=== PATIENT | male | born 1995 | race Caucasian/White ===

== ENCOUNTER 2020-03-13 17:11 | Emergency (ER) | payer MEDICAID, SELFPAY ==
[2020-02-06 14:37] VITALS: BMI 33.7
[2020-03-13 17:13] VITALS: BP 109/71; PULSE 95; RESP 18; TEMP 36.7; O2SAT 97; BMI 32.8
--- NOTE | 2020-03-13 17:26 | ED.DCSUM_ITS ---
History of Present Illness Chief Complaint: Other, Pain/Inj Narrative: Patient is a 24-year-old male who presents to the emergency department for rectal pain. This started yesterday. It is worse whenever he is having bowel movements and sitting on it. He does have a history of hemorrhoids in the past. He has been using Preparation H which has not been giving him significant relief. He states he has been straining to have bowel movements. Denies any blood in the stool. No melena. No abdominal pain. Denies any fevers or chills. No previous surgeries on the abdomen/pelvis. Past Medical History - Allergies and Home Meds Allergies/Adverse Reactions: Allergies No Known Allergies Allergy (Unverified 03/13/20 17:15) Primary Care Physician: Noman Urbina MD [Primary Care Provider] - 3-5 Days Smoking Status: Current every day smoker Review of Systems All systems negative except as indicated General: Denies: Chills, Fever, Sweats Eyes: Denies: Visual changes - bilaterally, Diplopia ENT: Denies: Rhinorrhea, Sore throat Cardiovascular: Denies: Chest pain, Palpitations Respiratory: Denies: Dyspnea, Cough, Dyspnea on exertion Gastrointestinal: Reports: - - Positive for rectal pain. Denies: Abdominal pain, Nausea, Vomiting, Diarrhea, Melena, Hematochezia Genitourinary: Denies: Dysuria, Hematuria, Frequency Musculoskeletal: Denies: Back pain, Extremity Pain Skin: Denies: Rash, Wounds Neurological: Denies: Headache, Weakness, Numbness Physical Exam Vital Signs/Narrative: Vital Signs Temp Pulse Resp BP Pulse Ox 03/13/20 17:13 98.0 F 95 18 109/71 97 Inital Vital Signs reviewed: Yes General: Well nourished, Well developed, No Acute Distress Head: Normocephalic, Atraumatic Eyes: Perrl, EOMI ENT: Moist mucous membranes, No rhinorrhea Neck: Supple, Nontender Cardiovascular: Regular rate, Regular rhythm, No murmurs Respiratory: No distress, CTA bilaterally, Chest nontender Abdomen: Soft, Nontender, Nondistended, Normal bowel sounds Rectal: - - No obvious external hemorrhoids. No blood present. No melena. No obvious fissures. No appreciable abscess. Back: Nontender, Normal Inspection Extremities: Nontender, No edema Skin: Normal color, No rash Neurological: Alert, Oriented x3, Cranial nerves II-XII grossly intact, Normal Strength, Normal Sensation Psychological: Normal affect, Normal Mood Diagnostic/Tx/Re-eval - Medical Decision Making Patient presents to the ED for rectal pain. Worse with bowel movements and sitting on it. Physical exam is benign. Vital signs within normal limits. Will place him on Colace for the straining. Suspect a small fissure. Recommend sitz bath. Can continue the Preparation H. Patient advised on higher fiber diet. Warning signs and symptoms for which to return to the ED including worsening pain, any bleeding or developing any abscess are reviewed. He otherwise is to follow-up with his PCP. He understands and is agreeable this plan. Patient discharged home in stable condition. ED Disposition - Plan for ED Patient: Disposition: Home or Assisted Living Diagnosis: Rectal pain Instructions: ED Fissure Anal Ch Prescriptions: Docusate Sodium [Colace] 100 mg PO BID 15 Days #30 cap Transmission Status: Received by [facility] [place] - [id number] Referrals: Noman Urbina MD [Primary Care Provider] - 3-5 Days
== END 2020-03-13 18:05 | disposition home or self-care (01) ==
LOC: ED 17:30
PROVIDERS: Emergency Provider Emergency Medicine; PCP Internal Medicine
DX: K62.89 Other specified diseases of anus and rectum (principal); F17.200 Nicotine dependence, unspecified, uncomplicated
CPT/HCPCS: 99282

== ENCOUNTER 2020-09-06 14:47 | Inpatient (IN) | payer MEDICAID, SELFPAY ==
[2020-09-06 14:48] VITALS: BP 121/86; PULSE 123; RESP 15; TEMP 36.4; O2SAT 97; BMI 32.3
--- NOTE | 2020-09-06 15:24 | ED.VISSUMM ---
- ER Visit Summary Date of Service: 09/06/20 Chief Complaint: Requesting inpatient detox for alcohol abuse History of Present Illness: The patient is a 25 M 3 of alcoholism and methamphetamine abuse. Patient denies any IV drug abuse. Last detox was approximately 8 months ago in [facility]. He states he drinks about 1/5 of Law Rober a day with 12 pack of beer. He denies any vomiting, diarrhea or melena. He denies any fevers. Physical Examination: Well-appearing young male. Vital signs stable and afebrile. He does not look septic or toxic. He is in no acute distress. H EENT exam unremarkable. Moist extremities. No signs of trauma to his face or scalp. Neck nontender no lymphadenopathy. Lungs clear to auscultation bilaterally. Heart tachycardic rate about 110 no murmur. Chest wall nontender. Abdomen soft nontender. Normal bowel sounds no peritoneal signs. Patient moving all 4 extremities. Neurovascular intact. Nontender no deformities. Back nontender. Neurologically is awake alert with no focal motor deficits. Test Results: [] Emergency Department Course and Treatment: Patient requesting inpatient detox for alcohol abuse. Also has a history of methamphetamine abuse. Treatment Plan: Hospitalist on page for admission Disposition: Admission. Impression: Requesting inpatient detox for alcohol abuse Also a history of methamphetamine abuse patient also gives me This note was generated with [employer] dictation software. It may contain incorrect words, spelling, and punctuation that were not noted in review of the chart prior to signing ED Disposition - Plan for ED Patient: Referrals: Care Physician,No Primary [Primary Care Provider] -
[2020-09-06 15:33] LABS: Absolute Lymphocyte Count 2.25 X10^3/uL (0.83-4.51); Absolute Neutrophil Count 2.8 X10^3/uL (2.0-7.7); Basophil# 0.06 X10^3/uL; Basophil% 1.1 % (0-1); Eosinophil# 0.13 X10^3/uL; Eosinophils% 2.3 % (0-5); Hematocrit 48.6 % (40-54); Hemoglobin 16.2 g/dL (13.0-16.5); Lymphocyte # 2.25 X10^3/ul (4.0); Lymphocyte % 39.9 % (19-41); Mean Corp Hgb Conc 33.3 g/dL (32-36); Mean Corpuscular Hgb 28.5 pg (27.0-32.0); Mean Corpuscular Volume 85.6 fL (80-94); Mean Platelet Vol. 9.1 fl (6.2-12.0); Monocyte# 0.39 X10^3/uL; Monocyte% 6.9 % (0-10); NRBC Flagged by Analyzer 0 % (0-5); Neutrophil % 49.6 % (47-70); Platelet Count 327 K/mm3 (150-450); RBC Distribution Width CV 13.3 % (11.6-14.6); RBC Distribution Width SD 41.6 fl (35.1-43.9); Red Blood Count 5.68 M/mm3 (4.6-6.2); White Blood Count 5.6 K/mm3 (4.4-11.0)
--- NOTE | 2020-09-06 15:41 | PCM.HP.STD ---
Problem List (1) Acute alcohol withdrawal Status: Acute (2) Alcohol abuse Status: Chronic (3) Bipolar 1 disorder Status: Chronic (4) Anxiety Status: Chronic (5) Depression Status: Chronic History of Present Illness Date of Admission: 09/06/20 Chief Complaint: Presented to the ED requesting admission for acute alcohol withdrawal. The patient is a 25 year old M with past medical history as mentioned above presented to the emergency room requesting admission for acute alcohol withdrawal. During my encounter, patient was very careless and playing games with his iPhone. I asked him a question about where he lives and he states that he does not have a place to live now but he was at a hotel recently. He states that he underwent detox program 8 months ago in [facility] but he relapsed drinking again around 1 week ago. He drinks 1/5 of Law and 12 beers a day. At this time, he denied any withdrawal symptoms. He admitted using amphetamines as well. He denied use of IV drugs. In the emergency department, he was tachycardic, other vital signs were stable. Routine blood work was remarkable for creatinine of 1.32, otherwise normal. LFT was unremarkable. Urine drug screen was positive for amphetamines and methamphetamines. Blood alcohol level was less than 3. He is being admitted for acute alcohol withdrawal for medical stabilization. Past Medical History Past Medical History (Chronic Problems): Chronic Problems (Last Updated 09/06/20 @ 15:[address] Holly Vega MD) Alcohol abuse (Chronic) Bipolar 1 disorder (Chronic) Anxiety (Chronic) Depression (Chronic) Medical History: Medical History (Last Updated 09/06/20 @ 15:[address] Holly Vega MD) Bipolar 1 disorder (Chronic) F31.9 Anxiety (Chronic) F41.9 Depression (Chronic) F32.9 Alcohol abuse F10.10 Drug abuse F19.10 history of fracture jaw Allergies No Known Allergies Allergy (Unverified 03/13/20 17:15) Home Medications: Ambulatory Orders Medication Instructions Recorded NK 09/06/20 Surgical History: no surgical history Psychiatric History: Anxiety, Depression Lives: Homeless Smoking Status: Current every day smoker Tobacco Use: Cigarettes Alcohol: Heavy Drugs: - - Amphetamines. - *Family History Maternal Family History: Family History (Last Updated 02/06/20 @ 14:44 by Morena Stoner) Aunt Cancer Other Depression Paternal Family History: Family History (Last Updated 02/06/20 @ 14:44 by Morena Stoner) Aunt Cancer Other Depression History Items: No pertinent history Review of Systems Constitutional: Denies: Anorexia, Chills, Fever, Weakness Eyes: Denies: Blurred vision, Double vision, Drainage, Redness HEENT: Denies: Difficulty Hearing, Dysphasia, Ear Pain, Eye Pain, Nasal Congestion, Sore Throat Cardiovascular: Denies: Chest Pain, Chest Pressure, Chest Tightness, Edema, Heaviness, Palpitations, Syncope Respiratory: Denies: Cough, Pleuritic Pain, Shortness of Breath, Sputum production, Wheezing Gastrointestinal: Denies: Abdominal Pain, Constipation, Diarrhea, Nausea, Vomiting Genitourinary: Denies: Dysuria, Frequency, Hematuria Musculoskeletal: Denies: Arm Pain, Back Pain, Foot Pain Skin: Denies: Dryness, Rash Neurological: Denies: Balance problems, Blurred vision, Double vision, Change in Speech, Slurred speech, Headaches, Incoordination Psychiatric: Reports: Anxiety, Depression. Denies: Suicidal Ideations Endocrine: Denies: Change in Body Habitus, Polydipsia, Polyuria VTE Information - Inpt Only VTE Present on Admission: No VTE Mechan Device Prophylaxis: None VTE Pharm Prophylaxis ordered?: No Patient Problems: Active and Suspected Problems (Last Updated 09/06/20 @ 15:[address] Holly Vega MD) Acute alcohol withdrawal (Acute) - Physical Exam Vitals/I&O's: Vital Signs Temp Pulse Resp BP Pulse Ox 97.5 F L 123 H 15 121/86 H 97 09/06/20 14:48 09/06/20 14:48 09/06/20 14:48 09/06/20 14:48 09/06/20 14:48 Oxygen Delivery Method Room Air Weight: 206 lb 2.115 oz Body Mass Index (BMI) 32.3 General: Alert, Oriented x3, Cooperative, No apparent distress HEENT: Atraumatic, PERRLA, EOMI, Normocephalic Oral: Moist Mucosa, No Gingival or Mucosal Lesions/ Ulcerations Neck: Supple, No JVD, Negative Carotid Bruits, Trachea Midline, Thyroid Normal Size and Texture Lungs: Clear to auscultation, Normal air movement, No rhonchi, No wheeze, No rales Cardiovascular: Regular rate, Regular Rhythm, Normal S1, Normal S2, PMI Normal Abdomen: Bowel Sounds Present, Soft, Non Tender, Non-Distended, No Hepato-splenomegaly Extremities: No clubbing, No cyanosis, No edema Skin: No rashes, No breakdown Lymphatic: No Cervical, Supraclavicular, or Inguinal Adenopathy Neurological: Cranial nerves II-XII grossly intact, Motor Exam 5/5 strength throughout Psych/Mental Status: Normal Affect, Appropriate, Alert and oriented to time, place, person, mood and affect Laboratory Results 09/06/20 15:15: WBC 5.6, RBC 5.68, Hgb 16.2, Hct 48.6, MCV 85.6, MCH 28.5, MCHC 33.3, RDW Std Deviation 41.6, RDW Coeff of Jai 13.3, Plt Count 327, MPV 9.1, Immature Gran % (Auto) 0.200, Neut % (Auto) 49.6, Lymph % (Auto) 39.9, Mills % (Auto) 6.9, Eos % (Auto) 2.3, Baso % (Auto) 1.1 H, Absolute Neuts (auto) 2.8, Absolute Lymphs (auto) 2.25, Nucleated RBC % 0 09/06/20 15:15: Sodium Pending, Potassium Pending, Chloride Pending, Carbon Dioxide Pending, Anion Gap Pending, BUN Pending, Creatinine Pending, Est GFR (MDRD) Af Amer Pending, Est GFR (MDRD) Non-Af Pending, BUN/Creatinine Ratio Pending, Glucose Pending, Calcium Pending, Total Bilirubin Pending, AST Pending, ALT Pending, Alkaline Phosphatase Pending, Total Protein Pending, Albumin Pending 09/06/20 15:15: Ethyl Alcohol Pending 09/06/20 15:27: Urine Opiates Screen Pending, Urine Methadone Screen Pending, Ur Barbiturates Screen Pending, Ur Phencyclidine Scrn Pending, Ur Amphetamines Screen Pending, U Methamphetamin-MDMA Pending, U Benzodiazepines Scrn Pending, Urine Cocaine Screen Pending, U Cannabinoids Screen Pending, Ur Drug Screen Comment Assessment/Plan All Active Problems (Last Updated 09/06/20 @ 15:[address] Holly Vega MD) Acute alcohol withdrawal (Acute) This is a 25 years old male patient presented to the emergency room requesting admission for acute alcohol withdrawal for medical stabilization. #1 acute alcohol withdrawal: Blood alcohol level was less than 3. Urine drug screen was positive for amphetamines and methamphetamines. Apart from mild tachycardia, other vital signs are stable. Plan: Admit to [facility] floor, initiate alcohol withdrawal protocol with tapering phenobarbital, thiamine and folate supplements, as needed Tylenol, Bentyl, Neurontin, Vistaril, Imodium, Zofran and trazodone, consult 180 program. #2 dehydration: As indicated by slightly better creatinine and tachycardia. Plan for IV fluids, repeat BMP tomorrow morning. #3 amphetamine use: Urine drug screen was positive for amphetamines and methamphetamines. #4 anxiety/depression/bipolar disorder: Currently, patient is not taking her medications. He denied suicidal intentions or ideations. #5 DVT prophylaxis: Low risk patient, no prophylaxis indicated. Ambulate. This note was generated with [employer] dictation software. It may contain incorrect words, spelling, and punctuation that were not noted in checking the note before signing. Inpatient E&M: 07296 Init Hosp L2
[2020-09-06 15:42] VITALS: BP 121/86; PULSE 123; RESP 15; TEMP 36.4; O2SAT 97
[2020-09-06 15:53] LABS: ALB/GLOB Ratio 1.2 RATIO (0.9-2.4); AST(SGOT) 16 U/L (15-37); Alanine Aminotransfer ALT/SGPT 33 U/L (16-61); Albumin, Serum 4.3 g/dL (3.2-5.0); Alkaline Phosphatase 94 U/L (45-117); Anion Gap 8 (5-15); BUN 18 mg/dL (7-18); BUN/Creat Ratio 13.6 RATIO (10-20); Calcium,Total 9.4 mg/dL (8.5-10.1); Chloride 104 mmol/L (98-107); Creatinine, Serum 1.32 mg/dL (0.70-1.30); EST Glomerular Filtration Rate 70 mL/min (>60); Est Glom Filt Rate - Afr Amer 84 mL/min (>60); Estimated Creatinine Clearance 79.29 ml/min; Globulin 3.7 g/dL (2.2-4.2); Glucose 89 mg/dL (74-106); Potassium 3.6 mmol/L (3.5-5.1); Sodium Level 138 mmol/L (136-145)
[2020-09-06 16:03] LABS: Amphetamine Urine VISTA POSITIVE (<1000 ng/mL); Barbiturate Urine VISTA NEGATIVE (< 200 ng/mL); Benzodiazepine Urine VISTA NEGATIVE (< 200 ng/mL); Cocaine Urine VISTA NEGATIVE (< 300 ng/mL); Ecstacy Urine VISTA POSITIVE (< 500 ng/mL); Methadone Urine VISTA NEGATIVE (< 300 ng/mL); PCP Urine VISTA NEGATIVE (< 25 ng/mL); THC Urine VISTA NEGATIVE (< 50 ng/mL); Vista UDS pH Range 5
[2020-09-06 16:21] VITALS: PULSE 116; BMI 28.1
[2020-09-06 16:29] VITALS: BP 121/86; PULSE 123; RESP 15; TEMP 36.4; O2SAT 97
[2020-09-06 16:29] LABS: Alcohol, Blood (Medical)-Serum < 3.0 mg/dL
[2020-09-06 16:37] VITALS: BP 116/93; PULSE 116; RESP 18; TEMP 36.5; O2SAT 99
[2020-09-06] MEDS: 0.9% Saline Lock 10 ML Syringe IV (17:16)
[2020-09-06] MEDS: 0.9% Normal Saline 1,000 ML 100 ML IV (17:16)
[2020-09-06] MEDS: Phenobarbital 32.4 MG Tablet PO ×2 (17:17→19:59)
[2020-09-06] MEDS: Dicyclomine 10 MG Capsule 20 MG PO (17:17)
[2020-09-06] MEDS: Gabapentin 300 MG Capsule PO (17:17)
[2020-09-06] MEDS: hydrOXYzine PAM 25 MG Capsule 50 MG PO (19:59)
[2020-09-06 20:00] VITALS: BP 102/53; PULSE 93; RESP 16; TEMP 36.3; O2SAT 99
[2020-09-07] MEDS: Phenobarbital 32.4 MG Tablet PO ×6 (00:45→20:15)
[2020-09-07] MEDS: traZODone 100 MG Tablet PO ×2 (00:45→20:16)
[2020-09-07] MEDS: Gabapentin 300 MG Capsule PO (04:16)
[2020-09-07 04:22] VITALS: BP 100/54; PULSE 90; RESP 16; TEMP 36.1; O2SAT 100
[2020-09-07 06:53] LABS: Anion Gap 6 (5-15); BUN 19 mg/dL (7-18); BUN/Creat Ratio 17.9 RATIO (10-20); Calcium,Total 8.7 mg/dL (8.5-10.1); Chloride 104 mmol/L (98-107); Creatinine, Serum 1.06 mg/dL (0.70-1.30); EST Glomerular Filtration Rate 90 mL/min (>60); Est Glom Filt Rate - Afr Amer 108 mL/min (>60); Estimated Creatinine Clearance 109.04 ml/min; Glucose 103 mg/dL (74-106); Potassium 3.3 mmol/L (3.5-5.1); Sodium Level 138 mmol/L (136-145)
--- NOTE | 2020-09-07 08:31 | PN_ITS ---
Patient Problems: Active and Suspected Problems (Last Updated 09/06/20 @ 15:[address] Holly Vega MD) Acute alcohol withdrawal (Acute) Subjective: Chief complaint: Follow-up after admission for acute alcohol withdrawal. Patient seen and examined. No acute events overnight. Patient stated that he did okay overnight, was able to sleep. He does have some restlessness. Vital signs are stable. - Physical Exam Vitals/I&O's: Vital Signs Temp Pulse Resp BP Pulse Ox 97 F L 90 16 100/54 L 100 09/07/20 04:22 09/07/20 04:22 09/07/20 04:22 09/07/20 04:22 09/07/20 04:22 Oxygen Delivery Method Room Air Weight: 196 lb 1 oz Body Mass Index (BMI) 28.1 Intake and Output for Last 24 Hours 09/05/20 09/06/20 09/07/20 23:59 23:59 23:59 Intake Total 970 / 970 Balance 970 / 970 General: Alert, Oriented x3, Cooperative, No apparent distress HEENT: Atraumatic, PERRLA, EOMI, Normocephalic Oral: Moist Mucosa, No Gingival or Mucosal Lesions/ Ulcerations Neck: Supple, No JVD, Negative Carotid Bruits, Trachea Midline, Thyroid Normal Size and Texture Lungs: Clear to auscultation, Normal air movement, No rhonchi, No wheeze, No rales Cardiovascular: Regular rate, Regular Rhythm, Normal S1, Normal S2, PMI Normal Abdomen: Bowel Sounds Present, Soft, Non Tender, Non-Distended, No Hepato- splenomegaly Extremities: No clubbing, No cyanosis, No edema Skin: No rashes, No breakdown Lymphatic: No Cervical, Supraclavicular, or Inguinal Adenopathy Neurological: Cranial nerves II-XII grossly intact, Neuro grossly intact Psych/Mental Status: Normal Affect, Appropriate Laboratory Results 09/06/20 15:15: WBC 5.6, RBC 5.68, Hgb 16.2, Hct 48.6, MCV 85.6, MCH 28.5, MCHC 33.3, RDW Std Deviation 41.6, RDW Coeff of Jai 13.3, Plt Count 327, MPV 9.1, Immature Gran % (Auto) 0.200, Neut % (Auto) 49.6, Lymph % (Auto) 39.9, [place]ades % (Auto) 6.9, Eos % (Auto) 2.3, Baso % (Auto) 1.1 H, Absolute Neuts (auto) 2.8, Absolute Lymphs (auto) 2.25, Nucleated RBC % 0 09/06/20 15:15: Sodium 138, Potassium 3.6, Chloride 104, Carbon Dioxide 26.0, Anion Gap 8, BUN 18, Creatinine 1.32 H, Estim Creat Clear Calc 79.29, Est GFR (MDRD) Af Amer 84, Est GFR (MDRD) Non-Af 70, BUN/Creatinine Ratio 13.6, Glucose 89, Calcium 9.4, Total Bilirubin 0.90, AST 16, ALT 33, Alkaline Phosphatase 94, Total Protein 8.0, Albumin 4.3, Globulin 3.7, Albumin/Globulin Ratio 1.2 09/06/20 15:15: Ethyl Alcohol < 3.0 09/06/20 15:27: Urine Opiates Screen NEGATIVE, Urine Methadone Screen NEGATIVE, Ur Barbiturates Screen NEGATIVE, Ur Phencyclidine Scrn NEGATIVE, Ur Amphetamines Screen POSITIVE H, U Methamphetamin-MDMA POSITIVE H, U Benzodiazepines Scrn NEGATIVE, Urine Cocaine Screen NEGATIVE, U Cannabinoids Screen NEGATIVE, Ur Drug Screen Comment 09/07/20 05:42: Sodium 138, Potassium 3.3 L, Chloride 104, Carbon Dioxide 28.0, Anion Gap 6, BUN 19 H, Creatinine 1.06, Estim Creat Clear Calc 109.04, Est GFR (MDRD) Af Amer 108, Est GFR (MDRD) Non-Af 90, BUN/Creatinine Ratio 17.9, Glucose 103, Calcium 8.7 Current Medications Acetaminophen (Acetaminophen 500 Mg Tablet) 500 mg PO Q4H PRN PRN PRN Reason: Temp > 100.4 F Dicyclomine HCl (Dicyclomine 10 Mg Capsule) 20 mg PO Q6H PRN PRN PRN Reason: abdominal discomfort Last Admin: 09/06/20 17:17 Dose: 20 mg Documented by: Folic Acid (Folic Acid 1 Mg Tablet) 1 mg PO DAILY@0800 ANDREI Gabapentin (Gabapentin 300 Mg Capsule) 300 mg PO Q8H PRN PRN PRN Reason: moderate to severe anxiety Last Admin: 09/07/20 04:16 Dose: 300 mg Documented by: Hydroxyzine Pamoate (Hydroxyzine Alma 25 Mg Capsule) 50 mg PO Q4H PRN PRN PRN Reason: mild anxiety Last Admin: 09/06/20 19:59 Dose: 50 mg Documented by: Sodium Chloride () 250 mls @ 15 mls/hr IV .[id number] PRN PRN Reason: Saline Flush Sodium Chloride () 250 mls @ 15 mls/hr IV .[id number] PRN PRN Reason: Additional IVPB Infusion Loperamide HCl (Loperamide 2 Mg Capsule) 2 mg PO Q4H PRN PRN PRN Reason: LOOSE STOOLS Nicotine (Nicotine 21 Mg Patch) 21 mg TD DAILY ANDREI Last Admin: 09/06/20 17:17 Dose: Not Given Documented by: Nutritional Formula (Lactose Free) (Ensure Enlive 120 Ml Liquid) 120 ml PO 4X/DAY ANDREI Ondansetron HCl (Ondansetron 8 Mg Tablet) 8 mg PO Q8H PRN PRN PRN Reason: NAUSEA Phenobarbital (Phenobarbital 32.4 Mg Tablet) 97.2 mg PO Q4H ANDREI; Taper Stop: 09/11/20 00:29 Last Admin: 09/07/20 04:16 Dose: 97.2 mg Documented by: Sodium Chloride (0.9% Saline Lock 10 Ml Syringe) 10 - 40 ml IV UD PRN PRN Reason: SALINE FLUSH Last Admin: 09/06/20 17:16 Dose: 10 ml Documented by: Thiamine HCl (Thiamine Hydrochloride 100 Mg Tablet) 100 mg PO DAILYCM ANDREI Trazodone HCl (Trazodone 100 Mg Tablet) 100 mg PO QHS PRN PRN Reason: INSOMNIA Last Admin: 09/07/20 00:45 Dose: 100 mg Documented by: Medical Necessity - Tobacco Use Smoking Status: Current every day smoker Tobacco Use: Cigarettes Assessment/Plan All Active Problems (Last Updated 09/06/20 @ 15:[address] Holly Vega MD) Acute alcohol withdrawal (Acute) This is a 25 years old male patient presented to the emergency room requesting admission for acute alcohol withdrawal for medical stabilization. #1 acute alcohol withdrawal: He is on tapering phenobarbital, thiamine and folic acid supplement, as needed Tylenol, Bentyl, Neurontin, Vistaril, Imodium, Zofran and trazodone. Vital signs are stable, heart rate is coming down. Blood alcohol level was less than 3. Urine drug screen was positive for amphetamines and methamphetamines. Plan to continue same treatment, consult 180 program. #2 dehydration/hypokalemia: Patient received IV fluids. Creatinine is back to normal. Today, potassium is 3.3. Tachycardia resolved. Plan to replace potassium with p.o. K. Dur. #3 amphetamine use: Urine drug screen was positive for amphetamines and methamphetamines. #4 anxiety/depression/bipolar disorder: Currently, patient is not taking her medications. He denied suicidal intentions or ideations. #5 DVT prophylaxis: Low risk patient, no prophylaxis indicated. Ambulate. This note was generated with [employer] dictation software. It may contain incorrect words, spelling, and punctuation that were not noted in checking the note before signing. Inpatient E&M: [id number] Subs Hosp L2
[2020-09-07] MEDS: Thiamine Hydrochloride 100 MG Tablet PO (09:02)
[2020-09-07] MEDS: Dicyclomine 10 MG Capsule 20 MG PO (09:03)
[2020-09-07] MEDS: Folic Acid 1 MG Tablet PO (09:03)
[2020-09-07 09:04] VITALS: BP 105/53; PULSE 93; RESP 16; TEMP 36.4; O2SAT 96
[2020-09-07] MEDS: Potassium Chloride Oral Tablet 20 MEQ 40 MEQ PO (09:11)
[2020-09-07 12:48] VITALS: BP 104/51; PULSE 80; RESP 16; TEMP 36.8; O2SAT 97
[2020-09-07 16:50] VITALS: BP 105/51; PULSE 80; RESP 16; TEMP 36.8; O2SAT 94
[2020-09-07 20:27] VITALS: BP 104/59; PULSE 95; RESP 16; TEMP 36.7; O2SAT 98
[2020-09-08] MEDS: Phenobarbital 32.4 MG Tablet PO ×6 (00:37→19:52)
[2020-09-08 03:58] VITALS: BP 104/63; PULSE 64; RESP 16; TEMP 36.1; O2SAT 100
[2020-09-08 09:55] VITALS: BP 100/81; PULSE 69; RESP 18; TEMP 36.4; O2SAT 97
[2020-09-08] MEDS: Thiamine Hydrochloride 100 MG Tablet PO (10:18)
[2020-09-08] MEDS: Folic Acid 1 MG Tablet PO (10:18)
--- NOTE | 2020-09-08 11:08 | CASEMGMT ---
AMAURY woke pt, gave pt resources for housing, including half-way information and [facility] information. BELLA Dela Cruz
--- NOTE | 2020-09-08 11:12 | ADDICTION ---
This science writer attempted to meet with PT. PT presented as extremely lethargic and was unable to participate appropriately. This science writer will attempt to meet with PT on 09/09/20.
--- NOTE | 2020-09-08 16:05 | PCM.PROGNOTE ---
Patient Problems: Active and Suspected Problems (Last Updated 09/06/20 @ 15:[address] Holly Vega MD) Acute alcohol withdrawal (Acute) Subjective: Patient was seen and examined today, he appeared somnolent but was then able to become more alert and respond appropriately to questions. Patient states that at the present time he is considering going into an inpatient detox program not in [place]. Patient does not complain of any nervousness or tremor at this time. According to the patient's medical record, the addiction case management social worker was not able to talk with the patient today due to somnolence. - Physical Exam Vitals/I&O's: Vital Signs Temp Pulse Resp BP Pulse Ox 97.6 F L 69 18 100/81 H 97 09/08/20 09:55 09/08/20 09:55 09/08/20 09:55 09/08/20 09:55 09/08/20 09:55 Oxygen Delivery Method Room Air Weight: 88.93 kg Body Mass Index (BMI) 28.1 Intake and Output for Last 24 Hours 09/06/20 09/07/20 09/08/20 23:59 23:59 23:59 Intake Total 1989 Balance 1989 General: Oriented x3, Cooperative, No apparent distress, Well developed, Lethargic HEENT: Atraumatic, PERRLA, EOMI, Normocephalic Oral: Moist Mucosa Neck: Supple, No JVD, Trachea Midline, Thyroid Normal Size and Texture Lungs: Clear to auscultation, Normal air movement, No rhonchi, No wheeze, No rales Cardiovascular: Regular rate, Regular Rhythm, Normal S1, Normal S2, No murmurs, PMI Normal, No rub noted, No Gallop Abdomen: Bowel Sounds Present, Soft, Non Tender, Non-Distended Extremities: No clubbing, No cyanosis, No edema, Capillary Refill Less than 3 Seconds Skin: No rashes, No breakdown Musculoskeletal: No Tenderness to Palpation of Joints or Extremities Neurological: Cranial nerves II-XII grossly intact, Neuro grossly intact, Sensory exam intact to light touch and pain, Coordination normal Psych/Mental Status: Appropriate, Flat Affect Current Medications Acetaminophen (Acetaminophen 500 Mg Tablet) 500 mg PO Q4H PRN PRN PRN Reason: Temp > 100.4 F Folic Acid (Folic Acid 1 Mg Tablet) 1 mg PO DAILY@0800 [facility] Last Admin: 09/08/20 10:18 Dose: 1 mg Documented by: Sodium Chloride () 250 mls @ 15 mls/hr IV .[id number] PRN PRN Reason: Saline Flush Sodium Chloride () 250 mls @ 15 mls/hr IV .[id number] PRN PRN Reason: Additional IVPB Infusion Nicotine (Nicotine 21 Mg Patch) 21 mg TD DAILY [facility] Last Admin: 09/08/20 10:21 Dose: Not Given Documented by: Ondansetron HCl (Ondansetron 8 Mg Tablet) 8 mg PO Q8H PRN PRN PRN Reason: NAUSEA Phenobarbital (Phenobarbital 32.4 Mg Tablet) 64.8 mg PO Q4H [facility]; Taper Stop: 09/11/20 00:29 Last Admin: 09/08/20 12:37 Dose: 64.8 mg Documented by: Sodium Chloride (0.9% Saline Lock 10 Ml Syringe) 10 - 40 ml IV UD PRN PRN Reason: SALINE FLUSH Last Admin: 09/06/20 17:16 Dose: 10 ml Documented by: Thiamine HCl (Thiamine Hydrochloride 100 Mg Tablet) 100 mg PO DAILYCM [facility] Last Admin: 09/08/20 10:18 Dose: 100 mg Documented by: Trazodone HCl (Trazodone 100 Mg Tablet) 100 mg PO QHS PRN PRN Reason: INSOMNIA Last Admin: 09/07/20 20:16 Dose: 100 mg Documented by: Medical Necessity - Tobacco Use Smoking Status: Current every day smoker Tobacco Use: Cigarettes Assessment/Plan All Active Problems (Last Updated 09/06/20 @ 15:[address] Holly Vega MD) Acute alcohol withdrawal (Acute) #1 acute alcohol withdrawal-continue present medications #2 chronic alcoholism-addiction social service will see the patient tomorrow #3 bipolar disorder-by history, patient is on no medications at the present time for bipolar disorder #4 drug abuse-patient's tox screen was positive for amphetamines methamphetamines on admission #5 dehydration-resolved at this time Inpatient E&M: [id number] [facility] Hosp L2
[2020-09-08 16:11] VITALS: BP 102/49; PULSE 68; RESP 18; TEMP 36.8; O2SAT 96
[2020-09-08 19:49] VITALS: BP 125/54; PULSE 70; RESP 18; TEMP 36.5; O2SAT 96
[2020-09-09] MEDS: Phenobarbital 32.4 MG Tablet PO ×5 (00:13→23:41)
[2020-09-09 05:40] VITALS: BP 113/47; PULSE 73; RESP 16; TEMP 36.9; O2SAT 94
--- NOTE | 2020-09-09 09:16 | ADDICTION ---
This film writer met with PT to complete ASAM, MSE, AUDIT and DUDIT assessments and to plan for discharge. PT a/o X4 and participated appropriately. All assessments completed, faxed to [facility] [place] and placed in PT's chart on fuentes. PT plans to direct admit to [facility] on 09/10/20 and is requesting to remain at [facility] until he is able to directly admit.
--- NOTE | 2020-09-09 11:58 | PCM.PROGNOTE ---
Patient Problems: Active and Suspected Problems (Last Updated 09/06/20 @ 15:[address] Holly Vega MD) Acute alcohol withdrawal (Acute) Subjective: She was seen and examined today, he does not complain of any nervousness or tremor, I talked with [facility] today and they stated they were able to take the patient tomorrow for inpatient detox services which patient has consented to. - Physical Exam Vitals/I&O's: Vital Signs Temp Pulse Resp BP Pulse Ox 98.5 F 73 16 113/47 L 94 09/09/20 05:40 09/09/20 05:40 09/09/20 05:40 09/09/20 05:40 09/09/20 05:40 Oxygen Delivery Method Room Air Weight: 88.93 kg Body Mass Index (BMI) 28.1 Intake and Output for Last 24 Hours 09/07/20 09/08/20 09/09/20 23:59 23:59 23:59 Intake Total 1989 Balance 1989 General: Alert, Oriented x3, Cooperative, No apparent distress HEENT: Atraumatic, PERRLA, EOMI, Normocephalic Neck: Supple, No JVD, Negative Carotid Bruits, Trachea Midline, Thyroid Normal Size and Texture Lungs: Clear to auscultation, Normal air movement, No rhonchi, No wheeze Cardiovascular: Regular rate, Regular Rhythm, Normal S1, Normal S2, No murmurs, PMI Normal, No rub noted, No Gallop Abdomen: Bowel Sounds Present, Soft, Non Tender, Non-Distended Extremities: No clubbing, No cyanosis, No edema, Capillary Refill Less than 3 Seconds Skin: No rashes, No breakdown Musculoskeletal: No Tenderness to Palpation of Joints or Extremities Neurological: Cranial nerves II-XII grossly intact, Neuro grossly intact, Sensory exam intact to light touch and pain, Coordination normal Psych/Mental Status: Normal Affect, Appropriate, Alert and oriented to time, place, person, mood and affect Current Medications Acetaminophen (Acetaminophen 500 Mg Tablet) 500 mg PO Q4H PRN PRN PRN Reason: Temp > 100.4 F Folic Acid (Folic Acid 1 Mg Tablet) 1 mg PO DAILY@0800 ANDREI Last Admin: 09/08/20 10:18 Dose: 1 mg Documented by: Sodium Chloride () 250 mls @ 15 mls/hr IV .[id number] PRN PRN Reason: Saline Flush Sodium Chloride () 250 mls @ 15 mls/hr IV .[id number] PRN PRN Reason: Additional IVPB Infusion Nicotine (Nicotine 21 Mg Patch) 21 mg TD DAILY [facility] Last Admin: 09/08/20 10:21 Dose: Not Given Documented by: Ondansetron HCl (Ondansetron 8 Mg Tablet) 8 mg PO Q8H PRN PRN PRN Reason: NAUSEA Phenobarbital (Phenobarbital 32.4 Mg Tablet) 64.8 mg PO Q6H [facility]; Taper Stop: 09/11/20 00:29 Last Admin: 09/09/20 05:38 Dose: 64.8 mg Documented by: Sodium Chloride (0.9% Saline Lock 10 Ml Syringe) 10 - 40 ml IV UD PRN PRN Reason: SALINE FLUSH Last Admin: 09/06/20 17:16 Dose: 10 ml Documented by: Thiamine HCl (Thiamine Hydrochloride 100 Mg Tablet) 100 mg PO DAILYCM [facility] Last Admin: 09/08/20 10:18 Dose: 100 mg Documented by: Trazodone HCl (Trazodone 100 Mg Tablet) 100 mg PO QHS PRN PRN Reason: INSOMNIA Last Admin: 09/07/20 20:16 Dose: 100 mg Documented by: Medical Necessity - Tobacco Use Smoking Status: Current every day smoker Tobacco Use: Cigarettes Assessment/Plan All Active Problems (Last Updated 09/06/20 @ 15:[address] Holly Vega MD) Acute alcohol withdrawal (Acute) #1 acute alcohol withdrawal-continue present medications #2 chronic alcoholism-addiction social services manager state the patient has agreed to inpatient detox services at [facility], anticipate discharge on 09/10/2020. #3 bipolar disorder-by history, patient is on no medications at the present time for bipolar disorder #4 drug abuse-patient's tox screen was positive for amphetamines methamphetamines on admission #5 dehydration-resolved at this time Inpatient E&M: 74403 Subs Hosp L2
[2020-09-09 12:27] VITALS: BP 111/59; PULSE 64; RESP 16; TEMP 36.6; O2SAT 98
[2020-09-09] MEDS: Thiamine Hydrochloride 100 MG Tablet PO (12:35)
[2020-09-09] MEDS: Folic Acid 1 MG Tablet PO (12:35)
[2020-09-09 18:00] VITALS: BP 108/60; PULSE 58; RESP 16; TEMP 36.6; O2SAT 96
[2020-09-09 20:17] VITALS: BP 103/56; PULSE 66; RESP 16; TEMP 36.5; O2SAT 97
[2020-09-10 05:25] VITALS: BP 106/61; PULSE 65; RESP 16; TEMP 36.5; O2SAT 95
[2020-09-10] MEDS: Phenobarbital 32.4 MG Tablet PO (05:29)
[2020-09-10] MEDS: Folic Acid 1 MG Tablet PO (08:01)
[2020-09-10] MEDS: Thiamine Hydrochloride 100 MG Tablet PO (08:01)
--- NOTE | 2020-09-10 09:59 | DCINST_ITS ---
- Discharge Diagnoses Current Active Problems: Current Active and Chronic Problems (Last Updated 09/06/20 @ 15:[address] Holly Vega MD) Acute alcohol withdrawal (Acute) Alcohol abuse (Chronic) Bipolar 1 disorder (Chronic) Anxiety (Chronic) Depression (Chronic) You will use the following diet at home:: No restrictions Your food should be the consistency of: Regular Your liquids should be the consistency of: Regular/Thin Discharge Activity: Return to Normal Activity Weight Bearing Status: Full weight bearing Allergies/Adverse Reactions: Allergies No Known Allergies Allergy (Unverified 03/13/20 17:15) Medications to take at Discharge NK 09/06/20 Primary Care Physician: Care Physician,No Primary [Primary Care Provider] - Test Results: Test results from this visit will be discussed in further detail at your follow- up appointment, if applicable. Please Follow Up With: [facility] as scheduled
--- NOTE | 2020-09-10 11:21 | PHA.DC.MR ---
Pharmacy Service has performed discharge medication reconciliation for this patient. The patient's discharge medication list was reviewed for discrepancies and discrepancies were resolved. Home Medications NK 09/06/20
--- NOTE | 2020-09-10 19:49 | DS.PCM_ITS ---
Discharge Date and Diagnosis - Problem List Patient Problems: Active and Suspected Problems (Last Updated 09/06/20 @ 15:[address] Holly Vega MD) Acute alcohol withdrawal (Acute) Date of Admission: 09/06/20 Date of Discharge: 09/10/20 - Primary Discharge Diagnosis Acute Problems: Active Problems (Last Updated 09/06/20 @ 15:[address] Holly Vega MD) #1 acute alcohol withdrawal #2 chronic alcoholism #3 bipolar disorder-by history #4 drug abuse-patient's tox screen was positive for amphetamines and methamphetamines on admission #5 dehydration #6 hypokalemia - Secondary Discharge Diagnosis Chronic Problems: Chronic Problems (Last Updated 09/06/20 @ 15:[address] Holly Vega MD) Alcohol abuse (Chronic) Bipolar 1 disorder (Chronic) Anxiety (Chronic) Depression (Chronic) Hospital Course and Treatment Operations: None Procedures: None Summary of Care Provided: The patient is a 25 year old M who presented to the emergency room at [facility] with request for admission for alcohol detox. Tox screen on admission was positive for methamphetamines and amphetamines, chemistry panel was remarkable for a creatinine of 1.32. Patient was admitted to [place] [id number], orders were entered using the alcohol detox order set, patient was seen by the addiction social administrative services assistant and arrangements were set up for the patient to go into an inpatient alcohol detox facility at the time of discharge. Patient had no untoward events during his hospitalization. On 09/10/2020, patient was seen and examined: On examination he appeared in good health and spirits. Vital signs as documented. Skin warm and dry and without overt rashes. Neck without JVD, neck was supple, trachea midline, thyroid was normal. Lungs clear bilaterally, normal air movement was noted. Heart exam notable for regular rhythm, normal sounds and absence of murmurs, rubs or ga llops. Abdomen unremarkable and without evidence of organomegaly, masses, or abdominal aortic enlargement. Bowel sounds are present, abdomen is not distended. Extremities nonedematous, no cyanosis was noted, no clubbing was noted. Neuro: Cranial nerves II through XII are grossly intact, no focal motor deficits were noted, sensation to light touch and pinprick intact, motor exam 5/5 throughout. Psych: Patient is alert and oriented x3, he does not appear anxious or depressed, he does not appear agitated. Patient was discharged to an inpatient alcohol detox program on 09/10/2020 in stable condition Patient Problems: Active and Suspected Problems (Last Updated 09/06/20 @ 15:[address] Holly Vega MD) Acute alcohol withdrawal (Acute) - Physical Exam Vitals/I&O's: Vital Signs Temp Pulse Resp BP Pulse Ox 97.7 F L 65 16 106/61 95 09/10/20 05:25 09/10/20 05:25 09/10/20 05:25 09/10/20 05:25 09/10/20 05:25 Oxygen Delivery Method Room Air Weight: 88.93 kg Body Mass Index (BMI) 28.1 Discharge Activity: Return to Normal Activity Weight Bearing Status: Full weight bearing Home Medications: Medications to take at Discharge NK 09/06/20 Primary Care Physician: Care Physician,No Primary [Primary Care Provider] - Please Follow Up With: [facility] as scheduled Disposition: Home Minutes spent on discharge:: 32 Patient Condition:: Stable Medical Necessity - Tobacco Use Smoking Status: Current every day smoker Tobacco Use: Cigarettes Meaningful Use Info Meaningful Use Diagnoses (Choose all that apply): None applicable Inpatient E&M: 65830 Disch Hosp
== END 2020-09-10 12:02 | DRG 775 ==
LOC: ED 15:18 → MS3 16:16
PROVIDERS: Admitting Provider Hospitalist; Emergency Provider Emergency Medicine; Visit Provider Internal Medicine
DX: F10.239 Alcohol dependence with withdrawal, unspecified (principal); F15.10 Other stimulant abuse, uncomplicated; Y90.0 Blood alcohol level of less than 20 mg/100 ml; Z59.0 Homelessness; E86.0 Dehydration; E87.6 Hypokalemia; F17.210 Nicotine dependence, cigarettes, uncomplicated
CPT/HCPCS: 36415; 80048; 80053; 80307; 82077; 85025; 97802; 99284; 99406; J7030; A4216

== ENCOUNTER 2022-03-20 04:31 | Emergency (ER) | payer MEDICAID, SELFPAY ==
[2022-03-20] VITALS (10 sets, daily range): BP systolic 121–129; BP diastolic 61–73; PULSE 74–89; RESP 16–18; TEMP 35.9; O2SAT 95–99; BMI 37.8
[2022-03-20 05:09] LABS: Absolute Lymphocyte Count 3.27 X10^3/uL (0.83-4.51); Absolute Neutrophil Count 2.5 X10^3/uL (2.0-7.7); Basophil# 0.07 X10^3/uL; Basophil% 1.1 % (0-1); Eosinophil# 0.15 X10^3/uL; Eosinophils% 2.3 % (0-5); Hematocrit 47.1 % (40-54); Hemoglobin 15.8 g/dL (13.0-16.5); Lymphocyte # 3.27 X10^3/ul (0.83-4.51); Lymphocyte % 50.8 % (19-41); Mean Corp Hgb Conc 33.5 g/dL (32-36); Mean Corpuscular Hgb 29.2 pg (27.0-32.0); Mean Corpuscular Volume 87.1 fL (80-94); Monocyte% 6.2 % (0-10); NRBC Flagged by Analyzer 0 % (0-5); Neutrophil # 2.53 X10^3/uL (2.7-7.7); Neutrophil % 39.3 % (47-70); Platelet Count 354 K/mm3 (150-450); RBC Distribution Width CV 13.3 % (11.6-14.6); RBC Distribution Width SD 42.6 fl (35.1-43.9); Red Blood Count 5.41 M/mm3 (4.6-6.2); White Blood Count 6.4 K/mm3 (4.4-11.0)
[2022-03-20 05:16] LABS: Bacteria 0 SEEN /hpf (None Seen); Mucous, Urine 0 SEEN /hpf (<or=2+); Red Blood Cells-Urine 0 SEEN /hpf (0-5); Squamous Epithelial Cells - UA 0 SEEN /hpf (0-5); White Blood Cells 0 SEEN /hpf (0-5)
[2022-03-20 05:17] LABS: Color, Urine Yellow (Yellow); Glucose, Dipstick Normal (Normal); Ketone-Dipstick 5 mg/dl (Negative); Leukocyte Esterase-Dipstick Negative /ul (Negative); Nitrite-Dipstick Negative (Negative); Occult Blood-Urine Negative /ul (Negative); Protein-Dipstick Negative (Negative); Urine Bilirubin Dipstick Negative (Negative); Urine Clarity Clear (Clear); Urine Urobilinogen Normal (Normal)
[2022-03-20 05:29] LABS: Anion Gap 6 (5-15); BUN 14 mg/dL (7-18); BUN/Creat Ratio 12.3 RATIO (10-20); Calcium,Total 8.9 mg/dL (8.5-10.1); Chloride 107 mmol/L (98-107); Creatinine, Serum 1.14 mg/dL (0.70-1.30); EST Glomerular Filtration Rate 81 mL/min (>60); Est Glom Filt Rate - Afr Amer 99 mL/min (>60); Estimated Creatinine Clearance 97.33 ml/min; Glucose 96 mg/dL (74-106); Potassium 3.8 mmol/L (3.5-5.1); Sodium Level 141 mmol/L (136-145)
[2022-03-20 05:40] LABS: Amphetamine Urine VISTA NEGATIVE (<1000 ng/mL); Barbiturate Urine VISTA NEGATIVE (< 200 ng/mL); Benzodiazepine Urine VISTA NEGATIVE (< 200 ng/mL); Cocaine Urine VISTA NEGATIVE (< 300 ng/mL); Ecstacy Urine VISTA NEGATIVE (< 500 ng/mL); Methadone Urine VISTA NEGATIVE (< 300 ng/mL); PCP Urine VISTA NEGATIVE (< 25 ng/mL); THC Urine VISTA POSITIVE (< 50 ng/mL); Vista UDS pH Range 4
[2022-03-20 05:41] LABS: Acetaminophen (Tylenol) Level < 2.0 ug/mL (10.0-30.0); Salicylate 4.3 mg/dL (2.8-20.0)
--- NOTE | 2022-03-20 06:04 | EX.ED.DYSGE1 ---
HPI History of Present Illness Chief Complaint: Suicidal Narrative Narrative: Patient is a 26-year-old male with history of alcohol abuse and bipolar disorder. He was brought in after he contacted police this morning. He states that his mom is dying and this is making him depressed. He states he also has a history of alcohol abuse and has been drinking. He reports that he is so depressed that he feels like hurting himself and states that his plan would be to hang himself by putting a rope around his neck. He does state that approximately 3 years ago he attempted to harm himself in the same way and had to spend time at a psychiatric hospital. Patient reports that he has been drinking consistent with his history of alcohol abuse and he uses marijuana but denies any other illicit drugs. He asked police to bring him to the hospital because he is concerned that he could try to harm himself once again with everything he is going through and therefore presents for evaluation at this time [facility] Medical History Alcohol abuse Anxiety Bipolar 1 disorder Depression Drug abuse history of fracture jaw Home Medications NK 09/06/20 [History Last Taken Unknown] Allergy/AdvReac Type Severity Reaction Status Date / Time No Known Allergies Allergy Unverified 03/20/22 04:36 Family History (Updated 02/06/20 @ 14:44 by Morena Stoner) Aunt Cancer Other Depression Social History (Updated 02/07/20 @ 10:09 by Yuniel Munoz NP, [employer]) Smoking Status: Current every day smoker tobacco type: cigarettes Tobacco: How many years used: 11 alcohol intake: former year quit: 2019 substance use type: former substance user Date of last use: 12/04/2019 and methamphetamine what type of physical activity do you participate in: none ROS ROS ED Constitutional Constitutional ED: Denies chills or fever(s) ENT ENT ED: Denies sore throat Cardiovascular Cardiovascular: Denies chest pain Respiratory/Chest Respiratory/Chest: Denies cough or dyspnea Gastrointestinal Gastrointestinal: Denies abdominal pain, diarrhea, nausea or vomiting Genitourinary Genitourinary ED: Denies dysuria Musculoskeletal Musculoskeletal: Denies myalgias Integumentary Denies rash Neurologic Neurologic: Denies headache(s) Psychiatric Psychiatric: Reports depression, suicidal ideation and suicidal thoughts Hematologic/Lymphatic Hematologic/Lymphatic: Denies easy bleeding or easy bruising EXAM Physical Exam Const Vital Signs: 03/20/22 04:31 03/20/22 05:31 03/20/22 06:00 Temperature 96.7 F L Temperature Source Temporal Pulse Rate 89 Respiratory Rate 17 Blood Pressure 129/73 H Blood Pressure Mean 91 Pulse Ox 95 Oxygen Delivery Method Room Air Room Air Room Air Positive well nourished, well developed and obese General Appearance ED: well developed Nutritional Appearance: obese HEENT Reports moist mucous membranes Eyes EOMs intact bilaterally Eyes Narrative: Pupils are slightly dilated and sluggish to respond consistent with alcohol use and there is mild scleral injection as well. Neck supple Resp normal respiratory effort and clear to auscultation bilaterally Cardio regular rate and regular rhythm GI normal to inspection, nondistended, normoactive bowel sounds, non-tender and non-distended Auscultation: normoactive bowel sounds Palpation: soft Extremity normal to inspection Neuro oriented x3 and CN's II-XII intact bilaterally Sensorium / Orientation: alert Psych Psych Narrative: Patient has a depressed flat affect with suicidal ideation Skin no rashes or lesions noted MDM MDM MDM Narrative Medical decision making narrative: Patient presented to the ER hemodynamically stable stable but with signs of intoxication. He reported to police as well as the healthcare facility that he had thoughts of suicide and was thinking of hanging himself. He also reported that he attempted to do this roughly 3 years ago in a similar fashion and therefore he is moderate risk for harming himself and a psychiatric work-up will be obtained. Patient's blood work revealed elevated alcohol level but otherwise no clinically significant findings. The patient alcohol level will be redrawn and once it is below 100 he will be able to talk to crisis center. I did reevaluate the patient at roughly 7:15 in the morning and he still endorses thoughts of suicide. Therefore at the patient's suicidal ideation with plan and previous attempt I do feel his safest option would be placement. The patient is medically cleared from emergency room standpoint for transfer/placement in a psychiatric hospital at this time. Lab Data Attestation: I reviewed the patient's lab results. Labs: Laboratory Results - last 24 hr 03/20/22 03/20/22 03/20/22 05:05 05:05 05:05 WBC 6.4 RBC 5.41 Hgb 15.8 Hct 47.1 MCV 87.1 MCH 29.2 MCHC 33.5 RDW Std Deviation 42.6 RDW Coeff of Jai 13.3 Plt Count 354 MPV 9.0 Immature Gran % (Auto) 0.300 Neut % (Auto) 39.3 L Lymph % (Auto) 50.8 H [place] % (Auto) 6.2 Eos % (Auto) 2.3 Baso % (Auto) 1.1 H Absolute Neuts (auto) 2.5 Absolute Lymphs (auto) 3.27 Nucleated RBC % 0 Sodium 141 Potassium 3.8 Chloride 107 Carbon Dioxide 28.0 Anion Gap 6 BUN 14 Creatinine 1.14 Estim Creat Clear Calc 97.33 Est GFR (MDRD) Af Amer 99 Est GFR (MDRD) Non-Af 81 BUN/Creatinine Ratio 12.3 Glucose 96 Calcium 8.9 Urine Color Urine Clarity Urine pH Ur Specific [place] Urine Protein Urine Glucose (UA) Urine Ketones Urine Occult Blood Urine Nitrite Urine Bilirubin Urine Urobilinogen Ur Leukocyte Esterase Urine RBC Urine WBC Ur Squamous Epith Cells Urine Bacteria Urine Mucus Salicylates 4.3 Urine Opiates Screen Urine Methadone Screen Acetaminophen < 2.0 L Ur Barbiturates Screen Ur Phencyclidine Scrn Ur Amphetamines Screen MDMA (Ecstasy) Screen U Benzodiazepines Scrn Urine Cocaine Screen U Cannabinoids Screen Ur Drug Screen Comment Ethyl Alcohol 165.0 03/20/22 03/20/22 05:10 05:10 WBC RBC Hgb Hct MCV MCH MCHC RDW Std Deviation RDW Coeff of Jai Plt Count MPV Immature Gran % (Auto) Neut % (Auto) Lymph % (Auto) [place] % (Auto) Eos % (Auto) Baso % (Auto) Absolute Neuts (auto) Absolute Lymphs (auto) Nucleated RBC % Sodium Potassium Chloride Carbon Dioxide Anion Gap BUN Creatinine Estim Creat Clear Calc Est GFR (MDRD) Af Amer Est GFR (MDRD) Non-Af BUN/Creatinine Ratio Glucose Calcium Urine Color Yellow Urine Clarity Clear Urine pH 5.0 Ur Specific [place] 1.030 Urine Protein Negative Urine Glucose (UA) Normal Urine Ketones 5 H Urine Occult Blood Negative Urine Nitrite Negative Urine Bilirubin Negative Urine Urobilinogen Normal Ur Leukocyte Esterase Negative Urine RBC 0 SEEN Urine WBC 0 SEEN Ur Squamous Epith Cells 0 SEEN Urine Bacteria 0 SEEN Urine Mucus 0 SEEN Salicylates Urine Opiates Screen NEGATIVE Urine Methadone Screen NEGATIVE Acetaminophen Ur Barbiturates Screen NEGATIVE Ur Phencyclidine Scrn NEGATIVE Ur Amphetamines Screen NEGATIVE MDMA (Ecstasy) Screen NEGATIVE U Benzodiazepines Scrn NEGATIVE Urine Cocaine Screen NEGATIVE U Cannabinoids Screen POSITIVE H Ur Drug Screen Comment Ethyl Alcohol Discharge Plan Triage Chief Complaint: Suicidal ED Provider: Yasir Whitehead Dx/Rx/DC Orders Clinical Impression: Depression with suicidal ideation, Bipolar 1 disorder, Alcohol abuse Prescriptions: No Action NK Primary Care Provider: Care Physician,No Primary Referrals: Care Physician,No Primary [Primary Care Provider] - Disposition Disposition: Psychiatric Hospital or Unit
--- NOTE | 2022-03-20 09:29 | ED.RN ---
crisis made aware of patient and chart faxed to crisis at this time
--- NOTE | 2022-03-20 10:13 | ED.RN ---
crisis called back and speaking with patient at this time
--- NOTE | 2022-03-20 10:35 | EKG12_ITS ---
Test Reason : MEDICAL CLEARANCE Blood Pressure : / mmHG Vent. Rate : 096 BPM Atrial Rate : 096 BPM P-R Int : 178 ms QRS Dur : 102 ms QT Int : 348 ms P-R-T Axes : 058 -06 035 degrees QTc Int : 439 ms Normal sinus rhythm Nonspecific T wave abnormality Abnormal ECG Confirmed by LARS MONTANO, MARIANELA ([id number]), legal editor EZEQUIEL LANZA ([id number]) on 03/22/2022 10:41:10 AM Referred By: Confirmed By:MARIANELA SOUSA MD
--- NOTE | 2022-03-20 10:36 | ED.RN ---
crisis called back patient can not be safety planned will be working on placement, requesting ekg at this time
--- NOTE | 2022-03-20 12:51 | ED.RN ---
[facility] CALLED BACK AND REQUESTED [facility], ADDRESSED TO [facility], EKG, AND COVID SCREENING DOCUMENT TO BE FAXED. DR. MEHTA ACCEPTING.
--- NOTE | 2022-03-20 17:23 | ED.RN ---
CALLED [facility] AND CONFIRMED PT IS ACCEPTED BY DR. MEHTA TO DUAL UNIT.
--- NOTE | 2022-03-20 17:38 | NURSING ---
PHYSICIANS CALLED. ETA OF 183.
--- NOTE | 2022-03-20 18:47 | NURSING ---
CALLED PHYSICANS FOR AN UPDATE. NEW ETA OF 193.
--- NOTE | 2022-03-20 19:47 | NURSING ---
[facility] ambulance here to transport patient at this time
== END 2022-03-20 19:51 ==
PROVIDERS: Emergency Provider Emergency Medicine; Visit Provider Emergency Medicine
DX: F31.9 Bipolar disorder, unspecified (principal); R45.851 Suicidal ideations; F10.10 Alcohol abuse, uncomplicated; F17.210 Nicotine dependence, cigarettes, uncomplicated
CPT/HCPCS: 80048; 80307; 80329; 81001; 82077; 85025; 87811; 93005; 99285; A4216; G0480